=== PATIENT | female | born 1960 | race Caucasian/White ===

== ENCOUNTER → 2023-11-21 08:03 | Outpatient (REF) | payer OTHER, SELFPAY | LOC: RAD 08:03 | PROVIDERS: ATTENDING PHYSICIAN Internal Medicine; FAMILY PHYSICIAN Family Medicine | DX: K52.9 Noninfective gastroenteritis and colitis, unspecified (principal) | CPT/HCPCS: 78264; A9541 ==

== ENCOUNTER 2024-02-16 18:00 | Inpatient (IN) | payer OTHER, SELFPAY ==
[2024-02-16 14:37] VITALS: BP 149/66
[2024-02-16 14:54] LABS: % Basophils 0.3 % (0-2); % Eosinophils 0.3 % (0-6); % Immature Granulocytes 0.4 % (0-0.5); % Lymphocytes 9.5 % (20.5-51.1); % Monocytes 6.1 % (1.7-9.3); % Neutrophils 83.4 % (42.2-75.2); Absolute Monocytes 0.7 10^3/uL (0.1-0.6); Absolute Neutrophils 9.2 10^3/uL (1.4-6.5); Hematocrit 37.8 % (37.0-47.0); Mean Corp Hgb Conc. 34.4 g/dL (33.0-37.0); Mean Corpuscular Hgb 29.6 pg (27.0-31.0); Mean Corpuscular Volume 86.1 fL (81.0-99.0); Mean Platelet Volume 9.6 fL (7.4-10.4); Nucleated Red Blood Cells % 0 %; Platelet Count 225 10^3/uL (130-400); Red Blood Cell Count 4.39 10^6/uL (4.20-5.40); Red Cell Dist. Width 12.8 % (11.5-14.5)
--- NOTE | 2024-02-16 14:58 | ED.GENMED ---
History of Present Illness
General
Chief Complaint: Abdominal Pain
Source: patient
Exam Limitations: none
Time Seen by Provider: 02/16/24 14:55
Nursing documentation reviewed up to this point in time: agreed with
History of Present Illness
History of Present Illness:
Patient is a 63-year-old female with known history of gallstones, gall sludge presenting to the emergency department via EMS for evaluation of epigastric/right upper quadrant abdominal pain. Patient states symptoms started earlier this morning and
was persistent for greater than 6 hours. This pain was associated with nausea, but no vomiting. Patient denies any fever, chills, constipation, urinary symptoms. Patient states that she has had the symptoms this past but they typically resolve
within an hour of onset. Given symptoms today with persistent and more severe�patient called 911 to be evaluated in the emergency department.
Of note�patient is followed by GI Dr. Rios for dumping syndrome and chronic diarrhea. They are aware of no gallstones and were initially planning for cholecystectomy but decided to hold off given syndrome.
Patient denies any chest pain or shortness of breath.
Upon arrival to emergency department�patient does report that symptoms have somewhat lessened.
Past History
Past History
ED Past Medical History: Asthma, HTN and Other (Irritable bowel syndrome)
ED Past Surgical History: , Gynecological (Tubal ligation, ectopic) and Other (Blepharitis surgery)
Social History
Tobacco: Non-smoker
Alcohol: None
Drug: None
Living: with family
Review of Systems
Review of Systems
Allergies reviewed?: Yes
All Other Systems: ROS reviewed and negative except as documented in HPI and ROS
Phy Exam
Physical Exam
Physical Exam:
Vitals: Hypertensive, otherwise vital signs stable. Afebrile
General: Patient is well appearing, no acute distress. Nontoxic-appearing
Skin: Warm and dry, no rashes or lesions
Head: Normocephalic, atraumatic
Eyes: Sclera nonicteric. EOMs intact. No nystagmus.
Throat: Protecting airway
Neck: Normal ROM, no cervical spine tenderness, no meningismus
Cardiac: Regular rate and rhythm, no murmurs.
Pulm: Normal respiratory effort, no wheezes, rales, rhonchi heard on exam.
Abdomen: Abdomen soft. Mild abdominal tenderness in right upper quadrant/epigastric region without rebound tenderness or guarding. No CVA tenderness. No rashes or ecchymoses of abdomen/trunk.
Extremities: No evidence of cyanosis or edema. Great distal pulses
Neuro: AAOx3. CN II-XII intact. No focal neurologic deficits.
Psychiatric: Normal affect.
Course
Orders/Labs/Results
Orders:
Orders
02/16/24 14:46
CMP [Comprehensive Metabolic Panel] Urgent
Complete Blood Count/With Diff Urgent
Lipase Urgent
02/16/24 15:20
0.9% Sodium Chloride 1000 ml [Nss] 1,000 ml IV BOLUS
Ketorolac [Toradol] 15 mg IV NOW STA
Ondansetron Injectable [Zofran] 4 mg IV NOW STA
02/16/24 15:21
Electrocardiogram (*1) Urgent
Reason for Study: Abdominal Pain
EKG- Treatment ONCE
02/16/24 15:50
US Abdomen Complete/Upper Urgent
Comment: elevated LFTs / lipase
Reason For Exam: RUQ pain, N/V
02/16/24 15:56
0.9% Sodium Chloride 1000 ml [Nss] 1,000 ml IV BOLUS
02/16/24 17:40
Admit/Transfer Patient As Directed
Co-Sign Provider:
Level of Care: Inpatient admission
Assign to:: Telemetry
Physician / Group: Dr. Ivan Ramírez/Hospitalists
Diagnosis: Acute Pancreatitis
Reason for Telemetry: Arrhythmia
Date to Stop Telemetry: 02/19/24
Time to Stop Telemetry: 11:00
Reason for Hospitalization: Acute Pancreatitis
Expected length of stay greater than two midnights?: Yes
ELOS- Estimated Length of Stay in days: 3
I certify the patient meets the requirements for IP care: Yes
02/16/24 17:42
Code Status As Directed
Resuscitation Status: Full Code
02/16/24 17:46
GASTROINTESTINAL CONSULT Routine
Consulting Provider: Karen Cuevas
Was physician already notified: Yes
Reason for consult: Acute Pancreatitis and Very High Hepatic Transaminases
02/16/24 17:55
SURGICAL CONSULT Routine
Consulting Provider: Kiko Sanders
Was physician already notified: Yes
Reason for consult: Suspected Acute Gallstone Pancreatitis. Evaluation for cholecystectomy.
02/19/24 11:00
DC Protocol for Telemetry ONCE
Abnormal Lab Results
02/16/24
14:46
WBC 11.0 H 10^3/uL
(4.8-10.8)
Absolute Neuts (auto) 9.2 H 10^3/uL
(1.4-6.5)
Absolute Lymphs (auto) 1.0 L 10^3/uL
(1.2-3.4)
Absolute Monos (auto) 0.7 H 10^3/uL
(0.1-0.6)
Neutrophils % 83.4 H %
(42.2-75.2)
Lymphocytes % 9.5 L %
(20.5-51.1)
BUN 18 H mg/dl
(7-17)
Glucose 105 H mg/dl
(70-99)
AST 749 H* U/L
(14-36)
ALT 1111 H* U/L
(0-35)
Alkaline Phosphatase 189 H U/L
(38-126)
Lipase > 4000 H* U/L
(23-300)
02/16/24 14:46
02/16/24 14:46
Vital Signs
Initial and Last Documented VS:
Initial Vital Signs
Pulse Ox
98
02/16/24 14:35
Last Documented Vital Signs
Temp Pulse Resp BP Pulse Ox
98.5 F 61 16 142/88 94
02/16/24 14:37 02/16/24 18:30 02/16/24 14:37 02/16/24 18:00 02/16/24 18:30
MDM/Problems Addressed
Differential Diagnosis Includes:
Not limited to: Biliary colic, cholecystitis, pancreatitis, dehydration, gastroenteritis,
MDM/Problems Addressed:
Patient is a 63-year-old female presenting with 6 hours of right upper quadrant/epigastric discomfort with associated nausea. Symptoms have somewhat resolved since arrival to emergency department. Patient is hypertensive on arrival likely due to
pain, otherwise vital signs are stable. She is afebrile. Physical exam as above. Patient is relatively well-appearing, in no apparent distress. She is nontoxic-appearing. She does have some mild right upper quadrant/epigastric discomfort
without rebound tenderness or guarding. No bruising or rashes to abdomen or trunk. Heart regular rate rhythm. Lungs clear bilaterally. EKG shows normal sinus rhythm without any acute ischemic changes. Labs were obtained in triage which show a
mild leukocytosis with white count of 11.0. There is significant elevation in AST and ALT and associated lipase of greater than 4000. High suspicion for acute pancreatitis secondary to gallstones. Patient was given Toradol, Zofran, fluids
initially. She is comfortable at this time. Will order abdominal ultrasound and second liter fluids. Patient will be admitted to hospitalist for further evaluation/management. She may require GI consult for ERCP/MRCP. Given patient's known
history of gallstones and gall sludge�patient will likely require cholecystectomy during this admission patient discussed with hospitalist and accepted to their service. GI will be consulted. Abdominal ultrasound pending. Discussed with patient.
Chronic conditions affecting care:
Dumping syndrome, known cholelithiasis/gallstone
Acute Exacerbation and/or Progression of Chronic Illness:
Acute pancreatitis likely secondary to gallstones
*Pulse Oximetry
Patient hypoxic: no
*EKG
Interpreted by ED Provider?: Yes
EKG Intrepretation Date: 02/16/24
Interpretation: normal
Comparison EKG: no changes
Heart Rate: 63
Rate: normal
Rhythm: sinus
Mounds: normal axis
Ischemia: no ischemia
*Factory Maintenance Technician Interpretation
Rate: Factory Maintenance Technician- N/A
*Critical Care Note
Total Time (30-74mins, 75-104mins- exclusive of procedures): Not Applicable
Patient Management
Discussion with other providers: Hospitalist
Escalation/DeEscalation of care consider admission/obs:
Admit for further management of acute pancreatitis, GI consult for possible ERCP/MRCP, possible cholecystectomy
ED Attending Note
-
Portions of this chart may have been created with voice recognition software.� Occasional wrong word or��sound alike� substitutions may have occurred due to the inherent limitations of voice recognition software.
Discharge Plan
Departure
Patient Disposition: Admit
Date of Disposition: 02/16/24
Time of Disposition: 15:54
Presentation/result/management discussed w/ accepting MD/DO: Hospitalist
Discharge Problem:
Acute pancreatitis
Interventions
Interventions:
*Risk Screen - Suicide Last Done: 02/16/24 14:37
*General Assessment Last Done: 02/16/24 14:37
*Neglect/Abuse Screening Last Done: 02/16/24 14:37
ED- Fall Risk Assessment Last Done: 02/16/24 18:02
*ED COVID-19 Vaccine History Last Done: 02/16/24 14:37
FC-Wzjcof-Drsorizvvz Assessment Last Done: 02/16/24 15:15
[2024-02-16 15:00] VITALS: BP 128/71
[2024-02-16 15:10] LABS: Albumin 4.4 g/dl (3.5-5.0); Alkaline Phosphatase 189 U/L (38-126); Blood Urea Nitrogen 18 mg/dl (7-17); Calcium 9.5 mg/dl (8.4-10.2); Carbon Dioxide 28 mmol/L (22-30); Chloride 104 mmol/L (98-107); Glucose 105 mg/dl (70-99); Potassium 3.8 mmol/L (3.5-5.1); Sodium 139 mmol/L (135-145); Total Bilirubin 1.3 mg/dl (0.2-1.3); Total Protein 7.3 g/dl (6.3-8.2); eGFR > 60.00
[2024-02-16] MEDS: TORADOL 15 MG IV (15:26)
[2024-02-16] MEDS: NSS 1000 IV ×2 (15:26→16:34)
[2024-02-16] MEDS: ZOFRAN 4 MG IV (15:26)
[2024-02-16 15:36] LABS: ALT (SGPT) 1111 U/L (0-35); Lipase > 4000 U/L (23-300)
[2024-02-16 15:45] LABS: AST (SGOT) 749 U/L (14-36)
--- NOTE | 2024-02-16 16:49 | HPS.HSE ---
Family Physician
-
Family Physician: Zbigniew Cunningham,
Chief Complaint
-
Abdominal Pain
History of Present Illness
63 y/o female with past medical history of wheelchair-bound, asthma, hypertension, loose stools, fatigue, gallstones, hiatal hernia, diverticulosis, chronic diarrhea and irritable bowel syndrome (See Dr. Rios of GI outpatient) presented with
abdominal pain since 6 AM this morning. Patient said it was an abdominal cramping type of pain in her bilateral upper abdomen, it was an intense pain that lasted for about 8 hours. Patient denied any fever. Patient reported she has chronic diarrhea
for which shes takes Imodium.
Medical History
Past Medical History
Past Medical History: Reports Other (As per HPI above)
Past Surgical History: Reports , Gynocological (Tubal ligation, ectopic) and Other (Blepharitis surgery)
Social History
Tobacco: Non-smoker
Alcohol: None
Drug: None
Family History
Family History: Not pertinent
Allergies / Home Medications
Allergies reflects when Allergies were last updated in [employer].
Home Medications with original date entered in [facility]
Allergy/Medication List:
Allergies
Allergy/AdvReac Type Severity Reaction Status Date / Time
fluoxetine [From Prozac] Allergy Mild Unknown Verified 09/05/23 09:25
egg Allergy Itching Verified 09/05/23 09:28
Home Medications
lactobacillus combination no.4 3 billion cell capsule (Probiotic) 3,000 mmu cells PO DAILY Supplement 03/02/23
loperamide 2 mg capsule 2 mg PO Q4HPRN PRN loose stools 03/02/23
loratadine 10 mg tablet (Claritin) 10 mg PO HS Allergies 03/02/23
vitamin B complex 1 tab PO DAILY Supplement 03/02/23
Vitamin D3 1 dose PO BID 09/05/23
hydroxyzine HCl 25 mg tablet 12.5 - 25 mg PO QIDPRN PRN stress 09/05/23
Calcium,Magnesium,Potassium 1 dose PO DAILY 02/16/24
yjcymu-zdnnuxve-qvjduzx 40,000-126,000-168,000 unit capsule, delay rel (Zenpep) 2 cap PO QID 02/16/24
Review of Systems
-
A 12 point ROS was completed and negative except as noted: Yes
Physical Exam
Vital Signs
Vital Signs
Temp Pulse Resp BP Pulse Ox
98.5 F 62 16 128/71 95
02/16/24 14:37 02/16/24 14:37 02/16/24 14:37 02/16/24 15:00 02/16/24 15:30
Physical Exam
General: No Apparent Distress, Comfortable and Conversant
HEENT: NormoCephalic and Moist mucous membranes
Respiratory: Clear
Cardiac: S1/S2 and Regular Rhythm
GI: Soft, Non Tender and Normal Bowel Sounds
Musculoskeletal: No Cyanosis and No Edema
Skin: Warm and Dry
Neuro: Awake, Alert, AO x 3 and Nonfocal/grossly intact
Psych: Calm and Intact Judgment/Insight
Laboratory Results
-
02/16/24 14:46
02/16/24 14:46
Laboratory Results
Total Bilirubin 1.3 mg/dl (0.2-1.3) 02/16/24 14:46
AST 749 U/L (14-36) H* 02/16/24 14:46
ALT 1111 U/L (0-35) H* 02/16/24 14:46
Alkaline Phosphatase 189 U/L (38-126) H 02/16/24 14:46
Lipase > 4000 U/L (23-300) H* 02/16/24 14:46
Impression/Plan
-
Assessment/Plan
Suspected Gallstone Pancreatitis
Elevated Lipase
Elevated AST and ALT
Leukocytosis
History of gallstones
-IV Fluids LR @ 300 cc/hr
-NPO except medications, ice chips, no sips of clears
-PRN IV Dilaudid
-Hold patient's home Imodium given acute pancreatitis
-Follow-up abdominal ultrasound
-Bladder Scans, monitor urinary output
-Consult GI, recommendations appreciated
-Await abdominal ultrasound results
-Likely cholecystectomy this admission
Asthma
-Monitor respiratory status
Hypertension
-Monitor blood pressure
Chronic loose stools and diarrhea, idiopathic dumping syndrome
-Hold home Imodium given acute pancreatitis
-Okay to give Zenpep
Irritable bowel syndrome (See Dr. Rios of GI outpatient)
History of fatigue
Hiatal hernia
Diverticulosis
Wheelchair-Bound
DVT Prophylaxis: Lovenox
Code Status: Full Code
[2024-02-16 18:00] VITALS: BP 142/88
[2024-02-16 19:00] VITALS: BP 145/92
[2024-02-16 19:02] LABS: Glucose - Point of Care 88 mg/dl (70-99)
[2024-02-16 19:30] VITALS: BP 143/75; BMI 30.5
--- NOTE | 2024-02-16 19:59 | PTCARENOTE ---
ED RN called to inform that the already ordered urgent US will not be done today.
[2024-02-16] MEDS: LOVENOX 40 MG SC (20:06)
[2024-02-16] MEDS: LR 1000 IV ×2 (20:08→23:03)
[2024-02-16] MEDS: ZENPEP DELAYED RELEASE CAPSULE PO ×2 (20:13→21:05)
--- NOTE | 2024-02-16 21:00 | PTCARENOTE ---
Received patient from ED. Patient AAOx3, assisted to the bedside with one assist. Lungs decreased, heart rate reg, positive pulses, no edema. Normal sinus on the monitor. She denies pain at this time. Pain managment education provided. IVF infusing.
Bedside commode provided as requested. Patient verbalized an understanding to ring for all transfers. Patient oriented to the unit. Call watt in reach.
[2024-02-16] MEDS: CLARITIN 10 MG PO (21:05)
[2024-02-16 21:27] LABS: Glucose - Point of Care 86 mg/dl (70-99)
[2024-02-16 23:00] VITALS: BP 123/73
[2024-02-17] MEDS: LR 1000 IV ×4 (02:58→18:11)
[2024-02-17 03:00] VITALS: BP 128/80
[2024-02-17 07:15] VITALS: BP 157/88
[2024-02-17 07:31] LABS: % Basophils 0.2 % (0-2); % Eosinophils 2.3 % (0-6); % Immature Granulocytes 0.4 % (0-0.5); % Lymphocytes 33.6 % (20.5-51.1); % Monocytes 8.4 % (1.7-9.3); % Neutrophils 55.1 % (42.2-75.2); Absolute Eosinophils 0.1 10^3/uL (0-0.7); Absolute Lymphocytes 1.7 10^3/uL (1.2-3.4); Absolute Monocytes 0.4 10^3/uL (0.1-0.6); Absolute Neutrophils 2.8 10^3/uL (1.4-6.5); Hematocrit 33.8 % (37.0-47.0); Hemoglobin 11.6 g/dL (12.0-16.0); Mean Corp Hgb Conc. 34.3 g/dL (33.0-37.0); Mean Corpuscular Hgb 29.9 pg (27.0-31.0); Mean Corpuscular Volume 87.1 fL (81.0-99.0); Nucleated Red Blood Cells % 0 %; Platelet Count 186 10^3/uL (130-400); Red Blood Cell Count 3.88 10^6/uL (4.20-5.40); Red Cell Dist. Width 13.1 % (11.5-14.5); White Blood Cell Count 5.1 10^3/uL (4.8-10.8)
[2024-02-17 07:55] LABS: AST (SGOT) 516 U/L (14-36); Albumin 3.2 g/dl (3.5-5.0); Alkaline Phosphatase 196 U/L (38-126); Blood Urea Nitrogen 14 mg/dl (7-17); Calcium 8.9 mg/dl (8.4-10.2); Carbon Dioxide 29 mmol/L (22-30); Chloride 108 mmol/L (98-107); Estimated Creatinine Clearance 104 ml/min; Glucose 85 mg/dl (70-99); Magnesium 1.9 mg/dl (1.6-2.3); Potassium 4.1 mmol/L (3.5-5.1); Sodium 139 mmol/L (135-145); Total Bilirubin 1.2 mg/dl (0.2-1.3); Total Protein 5.8 g/dl (6.3-8.2); eGFR > 60.00
[2024-02-17 08:05] LABS: ALT (SGPT) 888 U/L (0-35); Lipase 484 U/L (23-300)
[2024-02-17 08:08] LABS: Glucose - Point of Care 82 mg/dl (70-99)
--- NOTE | 2024-02-17 08:13 | CON.GI ---
Consultation
-
Date/Time Consultation Requested: 02/17/2024
Date/Time Consultation Performed: 03/08/24
Requesting Provider: Dr. Ramírez
Performing Provider: Dr. Cuevas
Reason for Consultation: Abdominal pain
Medical History
Chief Complaint / HPI
Chief Complaint: Abdominal pain
History of Present Illness:
63-year-old female with history of chronic diarrhea with extensive GI workup by Dr. Rios including infectious workup, inflammatory bowel disease, secretory diarrhea, celiac disease, microscopic colitis all negative, had low pancreatic elastase with
normal pancreatic imaging but rapid gastric emptying suggesting dumping syndrome, managed by big machine consultant and also takes Imodium and pancreatic enzyme supplements presenting with epigastric bandlike pain in the last couple of days similar to her
previous episodes with known history of gallstones. This time, pain was across the upper abdomen, 3 on 10 in intensity but more persistent than before. No nausea or vomiting. She has known history of gallstones, she had been having episodes of
intermittent abdominal pain in the last several months, lost about 15 pounds in total end of 2022, had ultrasound that showed gallstones and HIDA negative, and was seen by surgery () in October 2023, at that time her symptoms resolved and
surgery was on hold. At that time, her pain was relieved after bowel movements and it was thought to be related to her IBS. This visit, in the ER, she was noted to have elevated transaminases and alkaline phosphatase and lipase more than 4000,
clinically suggesting pancreatitis. No imaging was ordered. No fevers or chills.
No heartburn or trouble swallowing. She takes Zenpep 2 tablets 4 times a day and Imodium 1 to 6 tablets as needed and has anywhere from 2-6 bowel movements a day. No blood in the stool or black stool. No NSAID use or other new medication.
Past Medical History
Past Medical History: Asthma, HTN and Other (IBS-D, dumping syndrome)
Past Surgical History: and Gynecological
Social History
Tobacco: Non-Smoker
Alcohol: None
Family History
Family History: Reviewed & Not Pertinent and Other (Family history of colon polyps)
Allergies / Home Medications
Allergy/AdvReac Type Severity Reaction Status Date / Time
fluoxetine [From Prozac] Allergy Mild Unknown Verified 09/05/23 09:25
egg Allergy Itching Verified 09/05/23 09:28
�Medication �Instructions �Recorded
lactobacillus combination no.4 3 3,000 mmu cells PO DAILY Supplement 03/02/23
billion cell capsule (Probiotic)
loperamide 2 mg capsule 2 mg PO Q4HPRN PRN loose stools 03/02/23
loratadine 10 mg tablet (Claritin) 10 mg PO HS Allergies 03/02/23
vitamin B complex 1 tab PO DAILY Supplement 03/02/23
Vitamin D3 1 dose PO BID Supplement 09/05/23
hydroxyzine HCl 25 mg tablet 12.5 - 25 mg PO QIDPRN PRN stress 09/05/23
Calcium,Magnesium,Potassium 1 dose PO DAILY Supplement 02/16/24
psunri-symbcmej-qisjtvw 2 cap PO QID Supplement 02/16/24
40,000-126,000-168,000 unit
capsule, delay rel (Zenpep)
Review of Systems
-
All other systems: A 12 pt ROS was Negative except as stated above in HPI
Vital Signs
Temp Pulse Resp BP Pulse Ox
97.9 F 62 16 128/80 96
02/17/24 03:00 02/17/24 03:00 02/17/24 03:00 02/17/24 03:00 02/17/24 03:00
Physical Exam
Exam
General: Well Developed and Well Nourished
HEENT: Normocephalic and Anicteric
Respiratory: Clear
Cardiac: S1/S2 and Regular Rhythm
GI: Soft, Non Tender, Non Distended and Normal Bowel Sounds
Neuro: AO x 3
Results
WBC 5.1 10^3/uL (4.8-10.8) 02/17/24 06:
Hgb 11.6 g/dL (12.0-16.0) L 02/17/24:
Hct 33.8 % (37.0-47.0) L 02/17/24 06:
MCV 87.1 fL (81.0-99.0) 02/17/24 06:
Plt Count 186 10^3/uL (130-400) 02/17/24 06:
Absolute Neuts (auto) 2.8 10^3/uL (1.4-6.5) 02/17/24 06:
Sodium 139 mmol/L (135-145) 02/17/24:
Potassium 4.1 mmol/L (3.5-5.1) 02/17/24:
Chloride 108 mmol/L (98-107) H 02/17/24:
Carbon Dioxide 29 mmol/L (22-30) 02/17/24 06:
BUN 14 mg/dl (7-17) 02/17/24 06:
Creatinine 0.6 mg/dL (0.6-1.0) 02/17/24:
Calcium 8.9 mg/dl (8.4-10.2) 02/17/24 06:
Total Bilirubin 1.2 mg/dl (0.2-1.3) 02/17/24 06:
AST 516 U/L (14-36) H* 02/17/24 06:
ALT 888 U/L (0-35) H* 02/17/24 06:
Alkaline Phosphatase 196 U/L (38-126) H 02/17/24 06:
Lipase 484 U/L (23-300) H 02/17/24 06:29
Diagnostic Image Results:
Prior GI Procedures:
EGD: 08/2023 for generalized abdominal pain and diarrhea. Not on PPI. Small hiatal hernia otherwise normal esophagus, biopsies of the esophagus showed no pathology. Normal stomach, mild inflammation, negative for H. pylori, normal-appearing small
bowel, biopsy showed minimally active duodenitis otherwise normal.
Colonoscopy: 03/05/23 Inpatient. First colonoscopy due to diarrhea. Good prep to the terminal ileum. Sigmoid scattered diverticulosis otherwise endoscopically normal to the terminal ileum. Biopsies throughout the colon and rectum were normal with no
evidence of microscopic colitis. Repeat in 10 years for screening.
Assessment / Plan
-
63-year-old female with history of chronic diarrhea related to dumping syndrome, hypertension, asthma, known gallstones with HIDA scan previously negative, mildly elevated LFTs in the past-with negative workup presenting with acute onset of
abdominal discomfort and in the ER noted to have gallstone pancreatitis.
-Acute pancreatitis related to gallstones, previous intermittent episodes of biliary colic
N.p.o. continue Ringer lactate -currently at 120 cc an hour
Check CRP
Monitor LFTs, H&H and creatinine
Noted plan for laparoscopic cholecystectomy tomorrow
-Chronic diarrhea related to dumping syndrome/low pancreatic elastase
She is on pancreatic enzyme supplements/Imodium
Monitor electrolytes and replete as needed
Will follow
-
-
Thank you for consultation and allowing me to participate in the patient's care. Please call the assistant production editor GI physician during the after hours with any questions or concerns.
--- NOTE | 2024-02-17 08:49 | CON.GS ---
Addendum entered and electronically signed by Kiko Sanders MD 02/17/24 09:11:
Patient seen and examined with surgical COSMETIC CONSULTANT. Agree with documented consultation note consistent with my simultaneous examination and evaluation.
HPI: 63-year-old female with known GI history of diarrhea, pancreatic insufficiency having been followed with our GI service as an outpatient. She presented with acute onset of bandlike upper abdominal pain with nausea but no vomiting. She had a
similar episode a few days ago but it was more mild and did not last as long. Her bowels continue to be loose particularly over the last 3 days. No fevers chills or sweats. Her abdominal pain is resolved this morning.
Of note she also states that she has severe weakness and deconditioning and postexertional malaise where she uses a wheelchair for mobility.
Past surgical history notable for tubal/ectopic and . No additional abdominal surgical history.
AFVSS
ABD: Soft, nondistended, nontender on palpation. No rebound rigidity or guarding.
Lipase initially greater than 4000 currently down to 400s. LFTs improving as well.
White blood cell count has normalized.
No radiographic imaging for this stay however prior ultrasound of the abdomen has identified gravel like small gallstones
Assessment/plan: 63-year-old female presenting with probable gallstone mediated acute pancreatitis.
Clinically resolving
Discussed with patient indications for cholecystectomy which she is in agreement with. We also discussed nonoperative management. Laparoscopic cholecystectomy with intraoperative cholangiogram was reviewed in detail with the patient including the
operative technique, alternative treatment options, benefits and potential risks of the operative procedure. We specifically discussed that with her history of chronic diarrhea and loose stools cholecystectomy may potentially exacerbate and
generally would not improve this GI symptoms.
Agree with repeating ultrasound this hospitalization
Okay for clear liquid diet today, n.p.o. after midnight as she has been added onto the OR schedule for tomorrow 02/18/2024
Reduced IV fluid to maintenance
Original Note:
Consultation
-
Date/Time Consultation Requested: 02/16/24 1700
Reason for Consultation: Suspected Acute Gallstone Pancreatitis. Evaluation for cholecystectomy.
Medical History
-
Chief Complaint: abdominal pain
History of Present Illness:
Ms Lynn is a 63 yo female with a h/o IBS, and tubal ligation who has been following with gastroenterology as an outpatient over the last year for recurrent diarrhea and abdominal pain. She has had outpatient US with cholelithiasis and
normal HIDA as well as recent endoscopy (benign) in July and colonoscopy one year ago (polyps, diverticulosis). She has been on creon for symptoms management. She presented last night through the ED via EMS with onset of severe band like pain
across her upper abdomen which lasted about 8 hours. She has had similar pain previously which was short in duration. Prior to onset of pain, she had diarrhea for the past 3 days. She notes that over the last year, she has become quite weak and
deconditioned from recurrent GI symptoms and uses a wheelchair at home to get around. She does live alone and continues to cook her own meals and care for herself. She reports recent cardiac cath in work up for this which was negative. She currently
reports improvement/resolution of pain. She has mild nausea in the ambulance but no nausea since that time. She denies fevers or chills.
Past Medical History
Past Medical History: Other (IBS)
Past Surgical History: , Gynecological (tubal, ectopic pregancy) and Other (Blepharitis surgery)
Social History
Tobacco: Non-Smoker
Alcohol: None
Employment: Disabled
Family History
Family History: Reviewed & Not Pertinent
Allergies / Home Medications
Allergy/AdvReac Type Severity Reaction Status Date / Time
fluoxetine [From Prozac] Allergy Mild Unknown Verified 09/05/23 09:25
egg Allergy Itching Verified 09/05/23 09:28
�Medication �Instructions �Recorded �Confirmed �Type
lactobacillus combination no.4 3 3,000 mmu cells PO DAILY Supplement 03/02/23 02/16/24 History
billion cell capsule (Probiotic)
loperamide 2 mg capsule 2 mg PO Q4HPRN PRN loose stools 03/02/23 02/16/24 History
loratadine 10 mg tablet (Claritin) 10 mg PO HS Allergies 03/02/23 02/16/24 History
vitamin B complex 1 tab PO DAILY Supplement 03/02/23 02/16/24 History
Vitamin D3 1 dose PO BID Supplement 09/05/23 02/16/24 History
hydroxyzine HCl 25 mg tablet 12.5 - 25 mg PO QIDPRN PRN stress 09/05/23 02/16/24 History
Calcium,Magnesium,Potassium 1 dose PO DAILY Supplement 02/16/24 02/16/24 History
zttisd-qhbazqwb-ycgjaiz 2 cap PO QID Supplement 02/16/24 02/16/24 History
40,000-126,000-168,000 unit
capsule, delay rel (Zenpep)
Review of Systems
-
History Source: Patient
All other systems: Negative unless noted
A 10 point review of systems was completed, and was negative except as per HPI.
Physical Exam
Vital Signs
Temp Pulse Resp BP Pulse Ox
97.9 F 57 18 157/88 95
02/17/24 07:15 02/17/24 07:15 02/17/24 07:15 02/17/24 07:15 02/17/24 07:15
02/16/24 02/17/24 02/18/24
06:59 06:59 06:59
Actual Weight 83.121 kg
Body Mass Index (BMI) 30.5
Lab Results
02/17/24 06:29
02/17/24 06:29
WBC 5.1 10^3/uL (4.8-10.8) 02/17/24 06:29
Hgb 11.6 g/dL (12.0-16.0) L 02/17/24 06:29
Hct 33.8 % (37.0-47.0) L 02/17/24 06:29
Plt Count 186 10^3/uL (130-400) 02/17/24 06:29
Abs Immat Gran (auto) 0.0 10^3/uL (0-0.05) 02/17/24 06:29
Neutrophils % 55.1 % (42.2-75.2) 02/17/24 06:29
Physical Exam
General: Well Developed and No Apparent Distress
HEENT: Moist Mucous Membranes
Respiratory: Non Labored Respirations
GI: Soft, Non Tender and Non Distended
Skin: Warm and Dry
Neuro: Awake, Alert and AO x 3
Psych: Calm
Data Reviewed
-
Ultrasound: Image Personally Visualized and interpreted, Report Reviewed by me and Discussed with Patient
Medical Tests (Nuc Med, Echo etc): Image Personally Visualized and interpreted, Report Reviewed by me and Discussed with Patient
Labs: Labs Reviewed by me, Discussed with Physician, Discussed with Nurse and Discussed with Patient
Old Records: Reviewed
Assessment / Plan
-
63 yo female with a h/o IBS, C-sections and chronic diarrhea x1 year who presents with acute upper abdominal pain for about 8 hours, now resolved. Lipase and transaminases elevated on presentation and now trending down, bilirubin wnl. Mild
leukocytosis on presentation, now resolved. Previous GI work up with endo/colo in past year and prior US with gallstones with normal outpatient HIDA. US from this presentation pending. Pain now resolved with improving labs. Suspect gallstone
pancreatitis which is now resolving, likely passed stone. Discussed surgical cholecystectomy to prevent future attacks
--Ok for clear liquids today and NPO after MN
--Will tentatively plan OR tomorrow for lap sherita and cholangiogram
--Decrease IVF to 120ml
--Follow labs
--Analgesics/antiemetics prn
--VTE ppx as per primary team
[2024-02-17] MEDS: ZENPEP DELAYED RELEASE CAPSULE 2 CAPSULE PO ×3 (10:39→18:11)
[2024-02-17] MEDS: VISBIOME 1 CAP PO (10:40)
[2024-02-17] MEDS: B COMPLEX w/VITAMIN C 1 CAPLET PO (10:40)
[2024-02-17 11:10] VITALS: BP 161/87
--- NOTE | 2024-02-17 12:13 | W.PN.HOSP.TC ---
Today's Communication/Plan
-
Doing better, diet advanced to clears, plan for lap sherita this week
Assessment / Plan
Assessment / Plan
Physical Exam
General: No Apparent Distress, Comfortable and Conversant
HEENT: Normocephalic and Moist mucous membranes
Respiratory: Clear
Cardiac: S1/S2 and Regular Rhythm
GI: Soft, Non Tender and Normal Bowel Sounds
Musculoskeletal: No Cyanosis and No Edema
Skin: Warm and Dry
Neuro: Awake, Alert, AO x 3 and Nonfocal/grossly intact
Psych: Calm and Intact Judgment/Insight
Assessment/Plan
Suspected Gallstone Pancreatitis
Elevated Lipase
Elevated AST and ALT
Leukocytosis
History of gallstones
-Initially IV Fluids LR @ 300 cc/hr -- now rate reduced to 120 cc/hr as per GI
-Was NPO except medications, ice chips, no sips of clears, now on clear liquids as per surgery team
-PRN IV Dilaudid
-Hold patient's home Imodium given acute pancreatitis
-Still awaiting abdominal ultrasound which was ordered in the ER this hospitalization
-Bladder Scans, monitor urinary output
-Consult GI, recommendations appreciated
-Await abdominal ultrasound results
-Likely cholecystectomy this admission, early this upcoming week
Bradycardia
-HR in 50s on tele 02/17/24
-Patient reported some lightheadedness when sitting up
-Continue to monitor
Asthma
-Monitor respiratory status
Hypertension
-Monitor blood pressure
Chronic loose stools and diarrhea, idiopathic dumping syndrome
-Hold home Imodium given acute pancreatitis
-Okay to give Zenpep
Irritable bowel syndrome (See Dr. Rios of GI outpatient)
History of fatigue
Hiatal hernia
Diverticulosis
Wheelchair-Bound
DVT Prophylaxis: Lovenox
Code Status: Full Code
Anticipated Discharge: 24 - 48 hours
Subjective/Interval History
-
Date of Service: February 17, 2024
Patient was seen and examined. She reported her abdominal pain is better today.
Objective Data
-
Labs:
Laboratory Results
02/17/24
06:29
WBC 5.1
Hgb 11.6 L
Hct 33.8 L
Plt Count 186
Sodium 139
Potassium 4.1
Chloride 108 H
Carbon Dioxide 29
BUN 14
Creatinine 0.6
Glucose 85
Calcium 8.9
Total Bilirubin 1.2
AST 516 H*
ALT 888 H*
Alkaline Phosphatase 196 H
Vital Signs:
Vital Signs
Temp Pulse Resp BP Pulse Ox
98.3 F 56 16 161/87 96
02/17/24 11:10 02/17/24 11:10 02/17/24 11:10 02/17/24 11:10 02/17/24 11:10
I&O
02/16/24 02/17/24 02/18/24
06:59 06:59 06:59
Intake Total 3000 / 3000
Balance 3000 / 3000
--- NOTE | 2024-02-17 15:03 | CM ---
Reviewed the chart notes and spoke with the patient and her daughter at the bedside. The patient resides alone in a one story home with one step to enter. The patient has a rolling walker, wheelchair, bsc, and a transfer bench in the home. The
patient has had [facility] and [facility] in the past, but no SNF. The patient confirmed her pharmacy of choice is the [facility]. CM continues to be available to patient/family and is monitoring medical plan for needs at
discharge.
Plan: Patient anticipating having Laparoscopic cholecystectomy tomorrow. Discharge plans home with VN vs no needs.
[2024-02-17 15:20] VITALS: BP 169/90
[2024-02-17] MEDS: APRESOLINE 10 MG IV (18:10)
[2024-02-17] MEDS: LOVENOX 40 MG SC (18:11)
[2024-02-17 19:39] VITALS: BP 135/79
[2024-02-17] MEDS: FLAGYL 500 MG 100 IV (20:21)
[2024-02-17] MEDS: STERILE WATER FOR INJECTION 16 ML IV (20:21)
[2024-02-17] MEDS: ZINACEF 1500 MG IV (20:21)
[2024-02-17] MEDS: ULTRAM 25 MG PO (20:21)
[2024-02-17] MEDS: ZOFRAN 4 MG IV (20:22)
[2024-02-17] MEDS: CLARITIN PO (22:04)
[2024-02-17] MEDS: ZENPEP DELAYED RELEASE CAPSULE PO (22:04)
[2024-02-17 23:34] VITALS: BP 122/89
[2024-02-18] VITALS (12 sets, daily range): BP systolic 124–158; BP diastolic 73–82
[2024-02-18] MEDS: COMPAZINE 5 MG IV ×2 (02:03→21:15)
[2024-02-18] MEDS: LR 1000 IV ×3 (02:56→23:04)
[2024-02-18] MEDS: ZINACEF 1500 MG IV ×3 (04:03→20:47)
[2024-02-18] MEDS: STERILE WATER FOR INJECTION 16 ML IV ×3 (04:03→20:48)
[2024-02-18] MEDS: FLAGYL 500 MG 100 IV ×3 (04:03→20:46)
[2024-02-18] MEDS: B COMPLEX w/VITAMIN C PO (08:07)
[2024-02-18] MEDS: VISBIOME PO (08:07)
[2024-02-18] MEDS: ZENPEP DELAYED RELEASE CAPSULE PO ×5 (08:07→21:18)
[2024-02-18] MEDS: DILAUDID 0.5 MG IV ×3 (08:08→23:03)
[2024-02-18] MEDS: ZOFRAN 4 MG IV ×2 (08:11→17:00)
[2024-02-18 08:33] LABS: % Basophils 0.1 % (0-2); % Eosinophils 0.1 % (0-6); % Immature Granulocytes 0.3 % (0-0.5); % Lymphocytes 15.8 % (20.5-51.1); % Monocytes 7.5 % (1.7-9.3); % Neutrophils 76.2 % (42.2-75.2); Absolute Lymphocytes 1.4 10^3/uL (1.2-3.4); Absolute Monocytes 0.7 10^3/uL (0.1-0.6); Absolute Neutrophils 6.9 10^3/uL (1.4-6.5); Hematocrit 34.5 % (37.0-47.0); Mean Corp Hgb Conc. 34.8 g/dL (33.0-37.0); Mean Corpuscular Hgb 29.9 pg (27.0-31.0); Mean Corpuscular Volume 85.8 fL (81.0-99.0); Mean Platelet Volume 10.2 fL (7.4-10.4); Nucleated Red Blood Cells % 0 %; Platelet Count 196 10^3/uL (130-400); Red Blood Cell Count 4.02 10^6/uL (4.20-5.40); Red Cell Dist. Width 13.1 % (11.5-14.5); White Blood Cell Count 9.1 10^3/uL (4.8-10.8)
[2024-02-18 08:58] LABS: ALT (SGPT) 664 U/L (0-35); AST (SGOT) 230 U/L (14-36); Albumin 3.8 g/dl (3.5-5.0); Alkaline Phosphatase 209 U/L (38-126); Blood Urea Nitrogen 10 mg/dl (7-17); Calcium 9.4 mg/dl (8.4-10.2); Carbon Dioxide 29 mmol/L (22-30); Chloride 101 mmol/L (98-107); Estimated Creatinine Clearance 104 ml/min; Glucose 92 mg/dl (70-99); Magnesium 1.7 mg/dl (1.6-2.3); Potassium 3.4 mmol/L (3.5-5.1); Sodium 141 mmol/L (135-145); Total Bilirubin 0.6 mg/dl (0.2-1.3); Total Protein 6.5 g/dl (6.3-8.2); eGFR > 60.00
[2024-02-18 09:18] LABS: Glucose - Point of Care 106 mg/dl (70-99)
--- NOTE | 2024-02-18 10:13 | W.PN.GS2 ---
Today's Communication / Plan
-
OR today.
Assessment / Plan
-
This is a 63-year-old female who presents with her first episode of gallstone pancreatitis. Repeat ultrasound concerning for possible early acute cholecystitis.
Will plan for a laparoscopic cholecystectomy with cholangiogram in the OR today.
N.p.o., IV fluids, IV antibiotics per primary.
Risks/Benefits/Alternatives, expected postoperative course and possible complications (bleeding, infection, injury to surrounding structures, acute/chronic pain) discussed at length. Patient wishes to proceed with surgery. All questions answered.
Consent obtained.
I spent roughly 45 minutes in total for the care of this patient today including direct patient care and counseling, reviewing labs, imaging, coordination of care, as well as documentation.
Time Spent
Total Time Spent with Patient (in minutes): 20
Subjective Data
-
Date of Service: February 18, 2024
Interval Events:
No acute events overnight. Pain somewhat poorly controlled, endorses some nausea and vomiting. +bowel function.
Objective Data
-
Intake and Output
02/17/24 02/18/24 02/19/24
06:59 06:59 06:59
Intake Total 3000 / 3000 1860 / 1860
Output Total 1740 / 1740
Balance 3000 / 3000 120 / 120
Intake:
Oral fluids 1860 / 1860
IV fluids (Total) 3000 / 3000
Output:
Emesis 200 / 200
Urine, Campbell 100 / 100
Urine, Voided 1440 / 1440
Other:
Number of approximated SMALL 1
amounts of urine
Number of approximated MODERATE 2 7
amounts of urine
Number of approximated LARGE 1 9
amounts of urine
Vital Signs
Temp Pulse Resp BP Pulse Ox
97.8 F 74 16 124/74 98
02/18/24 07:54 02/18/24 07:54 02/18/24 07:54 02/18/24 07:54 02/18/24 07:54
Lab Results
02/18/24 07:33
02/18/24 07:33
Calcium 9.4 mg/dl (8.4-10.2) 02/18/24 07:33
Magnesium 1.7 mg/dl (1.6-2.3) 02/18/24 07:33
Total Bilirubin 0.6 mg/dl (0.2-1.3) 02/18/24 07:33
AST 230 U/L (14-36) H 02/18/24 07:33
ALT 664 U/L (0-35) H* 02/18/24 07:33
Alkaline Phosphatase 209 U/L (38-126) H 02/18/24 07:33
Total Protein 6.5 g/dl (6.3-8.2) 02/18/24 07:33
Albumin 3.8 g/dl (3.5-5.0) 02/18/24 07:33
Physical Exam
-
GENERAL/NEURO: Awake, Alert, no distress
CHEST: Unlabored breathing on RA
ABDOMEN: Soft, obese, mild right upper quadrant tenderness. Nondistended.
--- NOTE | 2024-02-18 10:16 | W.SUR.PREOP ---
Pre-Operative Surgical Note
-
I have examined this patient prior to the performance of the scheduled procedure.
The patient's condition is unchanged from the time of the current History and
Physical and the patient is able to undergo the scheduled procedure.
--- NOTE | 2024-02-18 10:16 | W.IMMPOSTOP ---
Surgical Immed Post Op Note
-
Primary Surgeon: Arnold Garzon MD
Assisting Surgeon: Kamila Narvaez (PGY-1)
Pre-op Diagnosis: Gallstone pancreatitis
Post-op Diagnosis: Gallstone pancreatitis, acute cholecystitis
Procedure Performed: Laparoscopic cholecystectomy with cholangiogram
Anesthesia Type: General
Specimen / Cultures: Gallbladder and contents
Estimated Blood Loss: 3 cc
Complications: None
Operative Findings: Distended, fairly normal-appearing gallbladder. Edematous cystic triangle. Critical view of safety obtained prior to a cholangiogram which demonstrated no distal filling defects and normal biliary anatomy. Duct ligated with a
clip followed by a 0 PDS Endoloop.
POST OP PLAN:
Imaging: None
Labs: Routine AM
Diet: Advance to Regular as tolerated
Analgesia: Tylenol 650mg q6 Willie, Michelle 5mg q6 PRN, Dilaudid 0.5mg q2h PRN
Neuro/vascular checks: q4h
AC/AP: Hold Therapeutic AC, Ok for DVT PPx
Activity: Ad Abbi
Wound/Incisions/Drains: Routine
Abx: Per primary
Dispo: RNF
--- NOTE | 2024-02-18 10:18 | OR.RPT ---
Operative Report
Operative Report
Patient Name: Carla Lynn
: 1960
Date of Operation: 02/18/2024
Preoperative Diagnosis: Gallstone pancreatitis
Postoperative Diagnosis: Gallstone pancreatitis, acute cholecystitis
Procedure(s):
Laparoscopic Cholecystectomy with Cholangiogram
Surgeon(s):
Dr. Arnold Garzon
Women'S Apparel Salesperson(s):
Kamila Narvaez, PGY1
Vikas Dumont, PACKING LINE WORKER
Anesthesia: General
Estimated Blood Loss: 3 cc
Urine Output: None
Drains/Lines/Implants: None
Specimens:
1. Gallbladder and contents
HPI/Surgical Indications:
This is a 63-year-old female who presents with 1-2 days of abdominal pain. Exam, labs and imaging are consistent with gallstone pancreatitis. Repeat ultrasound demonstrated worsening pericholecystic fluid concerning for acute cholecystitis.
Risks/Benefits/Alternatives were discussed at length, and the patient agreed to proceed with surgery.
Findings:
The patient was noted to have mild gallbladder inflammation with significant edema particularly in the cystic triangle. A Critical View of Safety was obtained. A cholangiogram showed no filling defects in the biliary system with the Left, Right
Anterior, Right posterior hepatic ducts, CHD, cystic duct and CBD all identified. There was brisk flow of dye into the duodenum.
Procedure Description:
The patient was brought to the Operating Room and placed in the supine position with one arm tucked. Following uneventful induction of general endotracheal anesthesia, an orogastric tube was placed. The abdomen was prepped and draped in the usual
sterile fashion. A timeout was performed confirming the procedure, consent, and that IV antibiotics were infused and sequential compression devices were confirmed to be on. The abdomen was entered using a left subcostal Veress technique which
required 1 pass followed by a 5 mm right upper quadrant Optiview entry. Pneumoperitoneum to 15 mmHg pressure was obtained without difficulty and we confirmed that no injury had occurred during our entry. The patient was positioned in reverse
Trendelenberg and rotated with the right side up slightly. Two 5mm trocars were then placed along the right subcostal margin and a 12 mm trocar in the epigastrium. The gallbladder was distended but floppy enough that we could place a locking
grasping forceps was placed on the fundus of the gallbladder where it was then retracted cephalad and to the right. Using appropriate grasping instruments, the peritoneum overlying the triangle of Calot was incised and extended superiorly on both
the anterior and posterior gallbladder carlos. Cystic triangle had significant edema. The infundibulum was dissected off the cystic plate. The cystic triangle was dissected until a critical view of safety was achieved. The cystic artery was
medialized, dissected and controlled with 2 proximal clips and 1 distal. The cystic duct/gallbladder junction in turn was identified, dissected circumferentially and a clip was placed. A ductotomy was made and a cholangiocatheter on an Arndt clamp
was inserted into the cystic duct. A C-arm was draped and brought into the field. An intra-operative cholangiogram was performed and was noted to have:
No filling defects in the biliary tree
No significant biliary dilation
Brisk flow of contrast into the duodenum
Normal biliary anatomy
The catheter was then removed and the cystic duct was controlled with a clip followed by a 0 PDS Endoloop. After ensuring both the artery and duct were divided, the gallbladder was freed from the liver using electrocautery. There was no spillage
of bile or stones. The gallbladder bed was inspected and excellent hemostasis was obtained. The gallbladder was extracted through the 12 mm trocar site using an endocatch bag. And was then closed using 0 PDS suture with help of a Agusto Rebolledo
device. The abdomen was again irrigated and excellent hemostasis was assured. All remaining trocars were then removed and the pneumoperitoneum was evacuated. All trocar sites were closed at the skin level using 4-0 Monocryl followed by Dermabond.
Overall, the patient tolerated the procedure well and was taken to the Recovery Room postoperatively in stable condition.
I was the attending physician and performed the procedure with assistance from the resident as well as PACKING LINE WORKER above. I was present for all portions of the case including skin closure.
Arnold Garzon MD
[2024-02-18] MEDS: SUBLIMAZE 25 MCG IV (10:58)
[2024-02-18] MEDS: ULTRAM 25 MG PO ×2 (11:50→17:53)
--- NOTE | 2024-02-18 11:50 | PTCARENOTE ---
Received patient from PACU s/p lap sherita, VSS, lap sites C/D/I, PRN PO tramadol given for abd cramping. Patient refusing scheduled tylenol and zenpep, general surgery made aware, PO tylenol changed to PRN. Clear liquid diet ordered for patient,
patient states no concerns at this time.
--- NOTE | 2024-02-18 12:17 | W.PN.UPDATE ---
Addendum entered and electronically signed by Karen Cuevas MD 02/18/24 12:19:
Patient can follow-up with Dr. Rios, outpatient GI doctor for chronic diarrhea.
Original Note:
Update Note
Progress Note Update
Status post laparoscopic cholecystectomy for gallstone pancreatitis. Biliary tree normal-appearing as per the report.
LFTs and lipase trending down.
No further GI workup needed. Will sign off, please call back if needed.
--- NOTE | 2024-02-18 16:25 | W.PN.HOSP.TC ---
Today's Communication/Plan
-
Postoperative care
Physical therapy assessment prior to discharge
Assessment / Plan
Assessment / Plan
Impression:
Acute cholecystitis
Acute gallstone pancreatitis
Conditions prior to admission:
Chronic diarrhea with pancreatic insufficiency/irritable bowel syndrome
Hiatal hernia
Essential hypertension
Asthma.
Ambulatory dysfunction/wheelchair-bound
Plan:
Acute cholecystitis with gallstone pancreatitis. Intraoperative cholangiogram with no filling defects.
Status post laparoscopic cholecystectomy on 02/17
Diet to be advanced as per surgery.
Wean off IV fluids diet has been advanced.
Bradycardia
-HR in 50s on tele 02/17/24
-Patient reported some lightheadedness when sitting up
-Continue to monitor
Asthma. No evidence for exacerbation
-Monitor respiratory status
Hypertension
-Monitor blood pressure
Chronic loose stools and diarrhea, idiopathic dumping syndrome
-Hold home Imodium given acute pancreatitis
-Okay to give Zenpep
Irritable bowel syndrome (See Dr. Rios of GI outpatient)
History of fatigue
Hiatal hernia
Diverticulosis
Wheelchair-Bound
DVT Prophylaxis: Lovenox
Code Status: Full Code
Anticipated Discharge: 24 - 48 hours
Subjective/Interval History
-
Date of Service: February 18, 2024
Objective Data
-
Labs:
Laboratory Results
02/18/24
07:33
WBC 9.1
Hgb 12.0
Hct 34.5 L
Plt Count 196
Sodium 141
Potassium 3.4 L
Chloride 101
Carbon Dioxide 29
BUN 10
Creatinine 0.6
Glucose 92
Calcium 9.4
Total Bilirubin 0.6
AST 230 H
ALT 664 H*
Alkaline Phosphatase 209 H
Vital Signs:
Vital Signs
Temp Pulse Resp BP Pulse Ox
98.5 F 60 16 156/82 96
02/18/24 14:50 02/18/24 14:50 02/18/24 14:50 02/18/24 14:50 02/18/24 14:50
I&O
02/17/24 02/18/24 02/19/24
06:59 06:59 06:59
Intake Total 3000 / 3000 1860 / 1860 128 / 128
Output Total 1740 / 1740
Balance 3000 / 3000 120 / 120 128 / 128
Physical Exam
-
General: Well Developed and No Apparent Distress
HEENT: Normocephalic, Atraumatic and Moist Mucous Membranes
Respiratory: Clear to Auscultation
Cardiac: Regular Rhythm and S1/S2; Negative Murmur, Rub or Gallop
GI: Soft, Nontender, Nondistended and Normal Bowel Sounds; Negative Organomegaly
Rectal: Deferred by Provider
Musculoskeletal: No Clubbing, No Cyanosis and No Edema
Skin: Negative Rash
Neuro: Nonfocal/Grossly Intact
[2024-02-18] MEDS: LOVENOX 40 MG SC (17:00)
[2024-02-18] MEDS: CLARITIN 10 MG PO (21:06)
[2024-02-19 03:43] VITALS: BP 171/74
[2024-02-19] MEDS: FLAGYL 500 MG 100 IV ×2 (03:56→11:25)
[2024-02-19] MEDS: ZINACEF 1500 MG IV ×2 (03:56→11:26)
[2024-02-19] MEDS: STERILE WATER FOR INJECTION 16 ML IV ×2 (03:56→11:26)
[2024-02-19 07:10] LABS: % Basophils 0.1 % (0-2); % Immature Granulocytes 0.5 % (0-0.5); % Lymphocytes 10.1 % (20.5-51.1); % Monocytes 6.4 % (1.7-9.3); % Neutrophils 82.9 % (42.2-75.2); Absolute Immature Granulocytes 0.1 10^3/uL (0-0.05); Absolute Lymphocytes 1.4 10^3/uL (1.2-3.4); Absolute Monocytes 0.9 10^3/uL (0.1-0.6); Absolute Neutrophils 11.1 10^3/uL (1.4-6.5); Hematocrit 33.9 % (37.0-47.0); Mean Corp Hgb Conc. 35.4 g/dL (33.0-37.0); Mean Corpuscular Hgb 30.1 pg (27.0-31.0); Mean Platelet Volume 9.9 fL (7.4-10.4); Nucleated Red Blood Cells % 0 %; Platelet Count 201 10^3/uL (130-400); Red Blood Cell Count 3.99 10^6/uL (4.20-5.40); Red Cell Dist. Width 13.3 % (11.5-14.5); White Blood Cell Count 13.4 10^3/uL (4.8-10.8)
[2024-02-19 07:37] LABS: ALT (SGPT) 511 U/L (0-35); AST (SGOT) 156 U/L (14-36); Albumin 3.6 g/dl (3.5-5.0); Blood Urea Nitrogen 12 mg/dl (7-17); Carbon Dioxide 28 mmol/L (22-30); Estimated Creatinine Clearance 104 ml/min; Glucose 114 mg/dl (70-99); Total Bilirubin 0.5 mg/dl (0.2-1.3); Total Protein 6.4 g/dl (6.3-8.2); eGFR > 60.00
[2024-02-19 07:47] LABS: Alkaline Phosphatase 177 U/L (38-126); Chloride 101 mmol/L (98-107); Potassium 3.4 mmol/L (3.5-5.1); Sodium 137 mmol/L (135-145)
[2024-02-19 07:59] VITALS: BP 155/89
--- NOTE | 2024-02-19 08:16 | W.PN.GS2 ---
Today's Communication / Plan
-
-- LFD
-- Pain control: Tylenol, Toradol, Tramadol
-- DC IVF
-- OK for DC from surgical perspective
-- DC instructions updated, f/u Dr. Garzon in 2-3 weeks
Assessment / Plan
-
This is a 63-year-old female who presents with her first episode of gallstone pancreatitis. Repeat ultrasound concerning for possible early acute cholecystitis.
POD#1 s/p laparoscopic cholecystectomy with IOC
Recovering well. No postoperative concerns.
-- LFD
-- Pain control: Tylenol, Toradol, Tramadol
-- DC IVF
-- Lovenox for DVT
-- OK for DC from surgical perspective
-- DC instructions updated, f/u Dr. Garzon in 2-3 weeks
Subjective Data
-
Date of Service: February 19, 2024
No major complaints. Pain improved. No nausea or vomiting. Ambulating. Voiding.
Objective Data
-
Intake and Output
02/18/24 02/19/24 02/20/24
06:59 06:59 06:59
Intake Total 1859 / 0 2648 / 2648
Output Total 1740 / 1740
Balance 120 / 120 2648 / 2648
Intake:
Oral fluids 1859 423 / 423
IV fluids (Total) 1924 / 1924
Lr 1,000 ml @ 75 mls/hr IV . 50 / 50
[id number] ADAM Rx#:[id number]
norm 75 / 75
IV piggybacks 300 / 300
Output:
Emesis 200 / 200
Urine, Campbell 100 / 100
Urine, Voided 1440 / 1440
Other:
Number of approximated SMALL 1
amounts of urine
Number of approximated MODERATE 7 1
amounts of urine
Number of approximated LARGE 9 2
amounts of urine
Vital Signs
Temp Pulse Resp BP Pulse Ox
97.9 F 62 18 155/89 94
02/19/24 07:59 02/19/24 07:59 02/19/24 07:59 02/19/24 07:59 02/19/24 07:59
Lab Results
02/19/24 06:55
02/19/24 06:55
Calcium 9.0 mg/dl (8.4-10.2) 02/19/24 06:55
Magnesium 1.7 mg/dl (1.6-2.3) 02/18/24 07:33
Total Bilirubin 0.5 mg/dl (0.2-1.3) 02/19/24 06:55
AST 156 U/L (14-36) H 02/19/24 06:55
ALT 511 U/L (0-35) H* 02/19/24 06:55
Alkaline Phosphatase 177 U/L (38-126) H 02/19/24 06:55
Total Protein 6.4 g/dl (6.3-8.2) 02/19/24 06:55
Albumin 3.6 g/dl (3.5-5.0) 02/19/24 06:55
Physical Exam
-
Gen: NAD
Abd: soft, appropraitely tender, ND, non-peritoneal, incisions c/d/i - no eryethema, ecchymosis or drainage
[2024-02-19] MEDS: B COMPLEX w/VITAMIN C 1 CAPLET PO (08:35)
[2024-02-19] MEDS: VISBIOME 1 CAP PO (08:35)
[2024-02-19] MEDS: ZENPEP DELAYED RELEASE CAPSULE 2 CAPSULE PO ×2 (08:35→13:35)
[2024-02-19] MEDS: ZOFRAN 4 MG IV (08:39)
[2024-02-19 11:36] VITALS: BP 143/73
--- NOTE | 2024-02-19 14:34 | W.DS.TRANS ---
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
-
Discharge Instructions:
Discharge Diagnosis/Procedures Acute cholecystitis.
GS pancreatitis
Laparoscopic cholecystectomy
Diet Low Fat
Activity No strenuous activity
Bathing Restrictions OK to Shower
Instructions:
Stand-Alone Forms:
Changes to Home Medications: No
Discharge Medications:
DC Medications w/original date entered in [employer]
lactobacillus combination no.4 3 billion cell capsule (Probiotic) 3,000 mmu cells PO DAILY Supplement 03/02/23
loperamide 2 mg capsule 2 mg PO Q4HPRN PRN loose stools 03/02/23
loratadine 10 mg tablet (Claritin) 10 mg PO HS Allergies 03/02/23
vitamin B complex 1 tab PO DAILY Supplement 03/02/23
Vitamin D3 1 dose PO BID Supplement 09/05/23
hydroxyzine HCl 25 mg tablet 12.5 - 25 mg PO QIDPRN PRN stress 09/05/23
Calcium,Magnesium,Potassium 1 dose PO DAILY Supplement 02/16/24
vhesfc-iqbldzah-hanoaii 40,000-126,000-168,000 unit capsule, delay rel (Zenpep) 2 cap PO QID Supplement 02/16/24
acetaminophen 325 mg tablet 650 mg (2 x 325 mg) PO Q6HPRN PRN mild pain #30 tabs 02/19/24
tramadol 50 mg tablet 25 mg (1/2 x 50 mg) PO Q6HPRN PRN mod pain #20 tabs 02/19/24
Home Medication Changes
Pending Results: No
[2024-02-19 14:37] VITALS: BP 160/89; PULSE 67; O2SAT 96
[2024-02-19 15:04] VITALS: PULSE 64; O2SAT 96
--- NOTE | 2024-02-19 15:14 | PTOTSP ---
pt currently demonstrates ability to complete simple ADLs, functional transfers with supervision to no assistance. pt reports she is capable of ambulating when energy is good; pt has been going to bedside commode with no assistance. no acute OT
needs identified at this time, will sign off.
--- NOTE | 2024-02-19 15:30 | CM ---
Reviewed the chart notes and spoke with the patient at the bedside. Patient seen by PT and recommendation is home. Discharge to home with VN services. Left voice message for the patient's daughter Desirae. Referral for VN placed. CM
continues to be available to patient/family and is monitoring medical plan for needs at discharge.
Plan: Discharge to home with VN.
[2024-02-19 15:56] VITALS: BP 139/80
--- NOTE | 2024-02-19 17:29 | PTCARENOTE ---
Patient discharged home. Flow RN Milagros removed patient's IV and telemetry pack and reviewed discharge instructions with patient. Patient taken down to discharge lounge in wheelchair by Milagros CALLE.
== END 2024-02-19 17:17 | disposition home health service (06) | DRG 417 ==
LOC: 2 NORTH 18:00
PROVIDERS: Student in an Organized Health Care Education/Training Program; Surgery; ADMITTING PHYSICIAN Hospitalist; ATTENDING PHYSICIAN Internal Medicine; CONSULT PHYSICIAN Internal Medicine Gastroenterology; CONSULT PHYSICIAN Surgery; EMERGENCY PHYSICIAN Emergency Medicine; FAMILY PHYSICIAN Family Medicine
PROC: BF141ZZ Fluoroscopy of Gallbladder, Bile Ducts and Pancreatic Ducts using Low Osmolar Contrast (ICD-10-PCS; 2024-02-18)
PROC: 0FT44ZZ Resection of Gallbladder, Percutaneous Endoscopic Approach (ICD-10-PCS; 2024-02-18)
DX: K80.00 Calculus of gallbladder with acute cholecystitis without obstruction (principal); K85.10 Biliary acute pancreatitis without necrosis or infection; I10 Essential (primary) hypertension; J45.909 Unspecified asthma, uncomplicated; D72.829 Elevated white blood cell count, unspecified; K44.9 Diaphragmatic hernia without obstruction or gangrene; K91.1 Postgastric surgery syndromes; K52.89 Other specified noninfective gastroenteritis and colitis; Z99.3 Dependence on wheelchair; Z87.19 Personal history of other diseases of the digestive system; Z88.8 Allergy status to other drugs, medicaments and biological substances; Z91.012 Allergy to eggs; Z83.719 Family history of colon polyps, unspecified
CPT/HCPCS: 88304; 74300; 76000; 76700; 80053; 82962; 83690; 83735; 85025; 86140; 93005; 96361; 96374; 96375; 97162; 97165; 99285; A4300

== ENCOUNTER 2024-04-21 11:43 | Emergency (ER) | payer OTHER, SELFPAY ==
[2024-04-21] VITALS (9 sets, daily range): BP systolic 128–157; BP diastolic 75–101; PULSE 72–89; BMI 30.8
--- NOTE | 2024-04-21 12:01 | ED.GENMED ---
History of Present Illness
General
Chief Complaint: Cardiac Symptoms
Source: patient
Exam Limitations: none
Time Seen by Provider: 04/21/24 11:50
History of Present Illness
History of Present Illness:
63-year-old female presents with generalized fatigue palpitations over the past 2 weeks. She has chronic diarrhea but had more diarrhea than usual this weekend. She states she has been wheelchair-bound recently secondary to her weakness. She
denies any significant chest pain. She denies shortness of breath. No vomiting. She is followed by cardiology and recently had an echocardiogram and stress test which per the patient showed no abnormalities.
Past History
Past History
ED Past Medical History: Asthma, HTN and Other (Irritable bowel syndrome)
ED Past Surgical History: , Gynecological (Tubal ligation, ectopic) and Other (Blepharitis surgery)
Social History
Tobacco: Non-smoker
Alcohol: None
Drug: None
Living: with family
Phy Exam
Physical Exam
Physical Exam:
General: Well-appearing female no acute distress
HEENT: Normocephalic atraumatic
Heart: Regular rate and rhythm no murmurs
Lungs: Clear no wheeze
Abdomen is soft nontender nondistended
Extremities: No cyanosis or edema
Course
Orders/Labs/Results
Orders:
Orders
04/21/24 11:47
EKG [Electrocardiogram (*1)] Urgent
Reason for Study: Palpitations
EKG- Treatment ONCE
04/21/24 12:00
Orthostatic VS- Treatment ONCE
0.9% Sodium Chloride 1000 ml [Nss] 1,000 ml IV BOLUS
04/21/24 12:27
Complete Blood Count/With Diff Urgent
Comprehensive Metabolic Panel Urgent
TSH Reflex To Free T4 Urgent
Abnormal Lab Results
04/21/24
12:27
Absolute Neuts (auto) 7.0 H 10^3/uL
(1.4-6.5)
Neutrophils % 76.7 H %
(42.2-75.2)
Lymphocytes % 15.3 L %
(20.5-51.1)
BUN 29 H mg/dl
(7-17)
Glucose 111 H mg/dl
(70-99)
ALT 36 H U/L
(0-35)
04/21/24 12:27
04/21/24 12:27
Vital Signs
Initial and Last Documented VS:
Initial Vital Signs
Pulse Resp Pulse Ox
80 21 99
04/21/24 11:49 04/21/24 11:49 04/21/24 11:49
Last Documented Vital Signs
Temp Pulse Resp BP Pulse Ox
97.5 F 75 18 142/101 76
04/21/24 11:51 04/21/24 11:51 04/21/24 11:51 04/21/24 11:51 04/21/24 11:57
MDM/Problems Addressed
Differential Diagnosis Includes:
Patient with history of IBS, chronic diarrhea presents with palpitations and fatigue. She states she had significant mount of diarrhea over the weekend. Question possible electrolyte abnormality volume depletion or dehydration. Will check for
arrhythmias on monitor. Labs pending.
*Critical Care Note
Total Time (30-74mins, 75-104mins- exclusive of procedures): Not Applicable
Update Note
Update Note:
Patient reexamined has been stable. She has stood up here with stable vital signs orthostatic vital signs are stable. She was hydrated. Labs reviewed without significant finding. Patient was mainly complaining of weakness however no source is
found. Patient expresses her desire to go home which I think is reasonable.
ED Attending Note
-
Portions of this chart may have been created with voice recognition software.� Occasional wrong word or��sound alike� substitutions may have occurred due to the inherent limitations of voice recognition software.
Discharge Plan
Departure
Patient Disposition: Home (Routine Discharge)
Date of Disposition: 04/21/24
Time of Disposition: 14:08
Patient with high blood pressure during this ER visit?: No
Discharge Problem:
Weakness
Instructions: Weakness
Prescriptions:
No Action
loperamide 2 mg Capsule
2 mg PO Q4HPRN PRN (Reason: loose stools )
loratadine [Claritin] 10 mg Tablet
10 mg PO HS
vitamin B complex Tablet
1 tab PO DAILY
Probiotic 3 billion cell Capsule
3,000 mmu cells PO DAILY
hydroxyzine HCl 25 mg Tablet
12.5 - 25 mg PO QIDPRN PRN (Reason: stress)
Vitamin D3 drops
1 dose PO BID
Zenpep 40,000-126,000- 168,000 unit capsule,delayed release(DR/EC)
2 cap PO QID
Calcium,Magnesium,Potassium
1 dose PO DAILY
acetaminophen 325 mg Tablet
650 mg PO Q6HPRN PRN (Reason: mild pain) Qty: 30 0RF
tramadol 50 mg Tablet
25 mg PO Q6HPRN PRN (Reason: mod pain) Qty: 20 0RF
Referrals:
Zbigniew Cunningham DO [Family Provider] -
Activity Restrictions/Additional Instructions:
Please return here for worsening symptoms. Follow-up with your family doctor. Continue current medication regimen
Interventions
Interventions:
*General Assessment Last Done: 04/21/24 11:53
*Neglect/Abuse Screening Last Done: 04/21/24 11:53
*ED COVID-19 Vaccine History Last Done: 04/21/24 11:51
ED- Pulmonary Assessment Last Done: 04/21/24 11:57
ED- Cardiac Assessment Last Done: 04/21/24 11:54
Discharge Date and Time
Print Language: [place]
[2024-04-21] MEDS: NSS 1000 IV (12:30)
[2024-04-21 12:36] LABS: % Basophils 0.2 % (0-2); % Eosinophils 0.4 % (0-6); % Immature Granulocytes 0.3 % (0-0.5); % Lymphocytes 15.3 % (20.5-51.1); % Monocytes 7.1 % (1.7-9.3); % Neutrophils 76.7 % (42.2-75.2); Absolute Lymphocytes 1.4 10^3/uL (1.2-3.4); Absolute Monocytes 0.6 10^3/uL (0.1-0.6); Hematocrit 39.9 % (37.0-47.0); Hemoglobin 13.6 g/dL (12.0-16.0); Mean Corp Hgb Conc. 34.1 g/dL (33.0-37.0); Mean Corpuscular Hgb 29.4 pg (27.0-31.0); Mean Corpuscular Volume 86.2 fL (81.0-99.0); Mean Platelet Volume 9.6 fL (7.4-10.4); Nucleated Red Blood Cells % 0 %; Platelet Count 264 10^3/uL (130-400); Red Blood Cell Count 4.63 10^6/uL (4.20-5.40); Red Cell Dist. Width 13.6 % (11.5-14.5); White Blood Cell Count 9.1 10^3/uL (4.8-10.8)
[2024-04-21 12:51] LABS: ALT (SGPT) 36 U/L (0-35); AST (SGOT) 27 U/L (14-36); Albumin 4.5 g/dl (3.5-5.0); Alkaline Phosphatase 84 U/L (38-126); Blood Urea Nitrogen 29 mg/dl (7-17); Calcium 9.9 mg/dl (8.4-10.2); Carbon Dioxide 22 mmol/L (22-30); Chloride 104 mmol/L (98-107); Estimated Creatinine Clearance 62 ml/min; Glucose 111 mg/dl (70-99); Potassium 4.3 mmol/L (3.5-5.1); Sodium 142 mmol/L (135-145); Total Bilirubin 0.2 mg/dl (0.2-1.3); Total Protein 7.7 g/dl (6.3-8.2); eGFR > 60.00
== END 2024-04-21 16:01 | disposition home or self-care (01) ==
LOC: EMR 11:43
PROVIDERS: Physician Assistant; EMERGENCY PHYSICIAN Emergency Medicine; FAMILY PHYSICIAN Family Medicine
DX: R53.1 Weakness (principal); R00.2 Palpitations; R53.83 Other fatigue; K58.0 Irritable bowel syndrome with diarrhea; J45.909 Unspecified asthma, uncomplicated; I10 Essential (primary) hypertension; Z88.8 Allergy status to other drugs, medicaments and biological substances; Z91.012 Allergy to eggs
CPT/HCPCS: 99284; 96360; 80053; 84443; 85025; 93005